=== PATIENT | female | born 1965 | race Caucasian/White ===

== ENCOUNTER 2018-09-24 05:27 | Emergency (ER) | payer BC ==
[~2018-09-24] VITALS: Ht 157.5 cm; Wt 65.3 kg
--- NOTE | 2018-09-24 05:46 | NUR ---
PT BIB SELF C/O ANXIETY, VS STABLE AOX4, PLACED ON ER BED 2, AWAITING TO BE EVAL BY ER MD.
[2018-09-24] MEDS ORDERED: ASPIRIN 81 MG TAB.CHEW ONE (06:16)
[2018-09-24] MEDS ORDERED: hydrALAZINE HCL IV 20 MG VIAL IV ONE (06:30)
[2018-09-24] MEDS ORDERED: ASPIRIN 81 MG TAB.CHEW PO ONE (06:30)
[2018-09-24] MEDS ORDERED: hydrALAZINE HCL IV 20 MG VIAL ONE (06:33)
[2018-09-24 06:41] LABS: BASOPHILS % (AUTO) 0.6 % (0.0-2.0); EOSINOPHILS % (AUTO) 1.9 % (0.0-6.0); HEMATOCRIT 38 % (33-45); LYMPHOCYTES # (AUTO) 2.2 /CMM (0.8-4.8); LYMPHOCYTES % (AUTO) 38.2 % (20.0-44.0); MEAN CORPUSCULAR HGB CONC 34 g/dl (31.0-36.0); MEAN CORPUSCULAR VOLUME 94 fL (82-100); MONOCYTES # (AUTO) 0.4 /CMM (0.1-1.30); MONOCYTES % (AUTO) 6.8 % (2.0-12.0); NEUTROPHILS # (AUTO) 3.1 /CMM (1.8-8.9); NEUTROPHILS % (AUTO) 52.5 % (43.0-81.0); PLATELET COUNT (AUTO) 229 /CMM (150-450); RED BLOOD CELL COUNT(AUTO) 4.07 MIL/uL (4.0-5.2); WHITE BLOOD COUNT (AUTO) 5.9 K/uL (4.3-11.0)
--- NOTE | 2018-09-24 06:43 | NUR ---
pt taken to ct.
[2018-09-24 06:45] LABS: CALCIUM, SERUM 9.8 mg/dL (8.5-10.1); CARBON DIOXIDE 28 mmol/L (21-32); CHLORIDE 104 mmol/L (98-107); CREATININE 0.8 mg/dL (0.6-1.3); GLUCOSE 90 mg/dL (74-106); POTASSIUM 4.3 mmol/L (3.5-5.1); SODIUM SERUM 141 mmol/L (136-145); UREA NITROGEN, BLOOD 13 mg/dL (7-18)
--- NOTE | 2018-09-24 07:02 | NUR ---
BS 77 MD REYNOLDS NOTIFIED.
[2018-09-24 07:37] LABS: CHOLESTEROL 206 mg/dL (<200); HDL CHOLESTEROL 92 mg/dL (40-60); LDL 85 mg/dL (0-99); TRIGLYCERIDES 193 mg/dL (30-150)
--- NOTE | 2018-09-24 08:00 | NUR ---
PATIENT A/OX4, PATIENT STILL FEELS LIKE "SOMETHING IS STUCK IN MY THROAT." NO DISTRESS, NO SOB NOTED. WILL CONTINUE TO MONITOR.
[2018-09-24 10:26] VITALS: BP 125/81
--- NOTE | 2018-09-24 10:28 | NUR ---
IV LINE DC ON L AC 20G
== END 2018-09-24 10:30 | disposition home or self-care (01) ==
LOC: ER 05:27
DX: R13.10 Dysphagia, unspecified (principal); R03.0 Elevated blood-pressure reading, without diagnosis of hypertension; F41.9 Anxiety disorder, unspecified; E03.9 Hypothyroidism, unspecified; F10.10 Alcohol abuse, uncomplicated; Y90.9 Presence of alcohol in blood, level not specified; Z90.710 Acquired absence of both cervix and uterus; Z88.6 Allergy status to analgesic agent
CPT/HCPCS: 36415; 70450; 71045; 80048; 80061; 82962; 84443; 84484 ×2; 85025; 85730; 93005 ×2; 96374; 99284; J0360